=== PATIENT | female | born 1975 | race Two or more races ===

== ENCOUNTER 2023-01-17 11:38 | Emergency (ER) | payer OTHER ==
[~2023-01-17] VITALS: Ht 165.1 cm; Wt 61.2 kg
== END 2023-01-17 13:49 | disposition home or self-care (01) ==
LOC: ER 11:38
DX: S92.811A Other fracture of right foot, initial encounter for closed fracture (principal); X58.XXXA Exposure to other specified factors, initial encounter; Y93.89 Activity, other specified; Y92.89 Other specified places as the place of occurrence of the external cause; Y99.8 Other external cause status; Z91.040 Latex allergy status

== ENCOUNTER 2023-01-24 12:44 | Outpatient (CLI) | payer OTHER | END 2023-01-24 12:54 | disposition home or self-care (01) | LOC: RAD 12:44 | PROVIDERS: ATTEND Orthopaedic Surgery | DX: M79.671 Pain in right foot (principal) ==

== ENCOUNTER 2023-05-24 10:35 | Outpatient (CLI) | payer OTHER | END 2023-05-24 10:36 | disposition home or self-care (01) | LOC: NUCLEAR 10:35 | PROVIDERS: ATTEND Orthopaedic Surgery | DX: M81.0 Age-related osteoporosis without current pathological fracture (principal) ==

== ENCOUNTER 2023-05-29 08:25 | Outpatient (CLI) | payer OTHER | END 2023-05-29 08:56 | disposition home or self-care (01) | LOC: RAD 08:25 | PROVIDERS: ATTEND Orthopaedic Surgery | DX: M25.551 Pain in right hip (principal) ==

== ENCOUNTER 2024-06-02 12:23 | Outpatient (CLI) | payer OTHER ==
[2024-06-02] MEDS ORDERED: PROBIOTIC1 EAC2 PO (22:23)
[2024-06-02] MEDS ORDERED: PEPCID AC20 MG PO (22:23)
== END 2024-06-02 12:47 | disposition home or self-care (01) ==
LOC: MAMO-SONO 12:23
DX: N63.0 Unspecified lump in unspecified breast (principal); Z12.31 Encounter for screening mammogram for malignant neoplasm of breast; Z98.82 Breast implant status

== ENCOUNTER 2024-06-02 14:56 | Outpatient (CLI) | payer OTHER ==
[2024-06-02 16:25] LABS: HEMATOCRIT 42.6 % (36.0-45.00); HEMOGLOBIN 14.3 g/dL (12.0-15.00); MEAN CELL VOLUME 91.3 fL (80.00-100.00); MEAN CORPUSCULAR HEMOGLOBIN 30.7 pg (27.00-32.0); MEAN CORPUSCULAR HGB CONC 33.7 g/dl (32.0-36.0); PLATELET COUNT 251 K/uL (150-450); RED BLOOD COUNT 4.67 M/uL (4.00-6.00); RED CELL DISTRIBUTION WIDTH 13.1 % (11.5-14.5)
[2024-06-02 16:36] LABS: PH,URINE 5.5 (5.0-8.0); URINE APPEARANCE Clear; URINE BILIRRUBIN Negative (NEGATIVE); URINE BLOOD Negative; URINE COLOR Yellow; URINE GLUCOSE Negative (NEGATIVE); URINE KETONE 15 (NEGATIVE); URINE LEUKOCYTE Negative; URINE NITRATE Negative; URINE PROTEIN Trace (NEGATIVE)
[2024-06-02 16:40] LABS: URINE BACTERIA 1080.7 uL (0.0-1933); URINE EPITHELIAL CELLS 19.2 uL (0.0-38.8); URINE RBC 3.2 uL (0.0-20.8); URINE WBC 2.6 uL (0.0-23.2)
[2024-06-02 16:43] LABS: INR 1.01; PARTIAL THROMBOPLASTIN TIME 24.2 SECONDS (22.0-34.0)
[2024-06-02 17:13] LABS: ALBUMIN 4.3 gm/dL (3.4-5.0); BILIRUBIN TOTAL 0.65 mg/dL (0.3-1.2); CALCIUM 9.3 mg/dL (8.5-10.1); CREATININE SERUM 0.69 mg/dL (0.55-1.02); GFR 90.05; GLOBULINA 3.5 G/DL (2.4-3.5); POTASSIUM 4.07 mEq/L (3.5-5.1); TOTAL PROTEIN 7.8 gm/dL (6.4-8.2)
[2024-06-02 17:20] LABS: TSH 5.81 uIU/mL (0.358-3.74)
[2024-06-02] MEDS ORDERED: PROBIOTIC1 EAC2 PO (22:23)
[2024-06-02] MEDS ORDERED: PEPCID AC20 MG PO (22:23)
[2024-06-03 11:43] LABS: VITAMIN D3 25 HYDROXY 28.8 ng/ml (30-120)
[2024-06-04 10:05] LABS: FOLLICLE STIMULATING HORMONE 19.3 mIU/mL (.); hav igm Negative (Negative); hcv Non Reactive (Non Reactive); hep b c Negative (Negative); hep b s ag Negative (Negative)
== END 2024-06-02 15:09 | disposition home or self-care (01) ==
LOC: LAB 14:56
DX: N95.8 Other specified menopausal and perimenopausal disorders (principal); R10.2 Pelvic and perineal pain; R73.01 Impaired fasting glucose; E55.9 Vitamin D deficiency, unspecified; D51.8 Other vitamin B12 deficiency anemias; N95.1 Menopausal and female climacteric states; E03.8 Other specified hypothyroidism; E72.20 Disorder of urea cycle metabolism, unspecified; R94.5 Abnormal results of liver function studies

== ENCOUNTER 2024-06-02 18:26 | Emergency (ER) | payer OTHER ==
[~2024-06-02] VITALS: Ht 165.1 cm; Wt 65.3 kg
[2024-06-02 18:38] VITALS: BP 157/94; O2SAT 96
[2024-06-02] MEDS ORDERED: 0.9 % SODIUM CHLORIDE 1,000 ML IV ONE (20:30)
[2024-06-02 21:25] LABS: HEMATOCRIT 41.1 % (36.0-45.00); HEMOGLOBIN 13.9 g/dL (12.0-15.00); MEAN CELL VOLUME 90.8 fL (80.00-100.00); MEAN CORPUSCULAR HEMOGLOBIN 30.7 pg (27.00-32.0); MEAN CORPUSCULAR HGB CONC 33.8 g/dl (32.0-36.0); PLATELET COUNT 263 K/uL (150-450); RED BLOOD COUNT 4.53 M/uL (4.00-6.00); RED CELL DISTRIBUTION WIDTH 13.2 % (11.5-14.5)
[2024-06-02 21:54] LABS: INR 0.97; PARTIAL THROMBOPLASTIN TIME 28.9 SECONDS (22.0-34.0); PROTHROMBIN TIME 10.6 SECONDS (9.0-11.5)
[2024-06-02] MEDS ORDERED: PEPCID AC20 MG PO (22:23)
[2024-06-02] MEDS ORDERED: PROBIOTIC1 EAC2 PO (22:23)
== END 2024-06-02 22:27 | disposition home or self-care (01) ==
LOC: ER 18:28
PROVIDERS: General Practice
DX: R53.81 Other malaise (principal); D72.819 Decreased white blood cell count, unspecified; Z88.6 Allergy status to analgesic agent; Z91.040 Latex allergy status

== ENCOUNTER 2024-06-30 10:30 | Outpatient (CLI) | payer OTHER ==
[~2024-06-30 10:30] MED LIST: PEPCID AC20 MG PO; PROBIOTIC1 EAC2 PO
[2024-06-30 11:29] LABS: HEMATOCRIT 41.2 % (36.0-45.00); HEMOGLOBIN 13.8 g/dL (12.0-15.00); MEAN CELL VOLUME 91.5 fL (80.00-100.00); MEAN CORPUSCULAR HEMOGLOBIN 30.6 pg (27.00-32.0); MEAN CORPUSCULAR HGB CONC 33.4 g/dl (32.0-36.0); PLATELET COUNT 272 K/uL (150-450); RED CELL DISTRIBUTION WIDTH 13.4 % (11.5-14.5)
== END 2024-06-30 10:37 | disposition home or self-care (01) ==
LOC: LAB 10:30
PROVIDERS: ATTEND Internal Medicine
DX: J20.2 Acute bronchitis due to streptococcus (principal)

== ENCOUNTER 2024-06-30 10:58 | Outpatient (CLI) | payer OTHER | END 2024-06-30 11:01 | disposition home or self-care (01) | LOC: SONOGRAMA 10:58 | PROVIDERS: ATTEND Internal Medicine | DX: E03.2 Hypothyroidism due to medicaments and other exogenous substances (principal) ==

== ENCOUNTER 2024-08-25 08:24 | Outpatient (CLI) | payer OTHER ==
[2024-08-25 09:29] LABS: HEMATOCRIT 43.4 % (36.0-45.00); HEMOGLOBIN 13.9 g/dL (12.0-15.00); MEAN CELL VOLUME 92.5 fL (80.00-100.00); MEAN CORPUSCULAR HEMOGLOBIN 29.7 pg (27.00-32.0); MEAN CORPUSCULAR HGB CONC 32.1 g/dl (32.0-36.0); PLATELET COUNT 304 K/uL (150-450); RED BLOOD COUNT 4.69 M/uL (4.00-6.00); RED CELL DISTRIBUTION WIDTH 12.8 % (11.5-14.5)
[2024-08-25 10:34] LABS: ALBUMIN 4.2 gm/dL (3.4-5.0); BILIRUBIN TOTAL 0.51 mg/dL (0.3-1.2); CALCIUM 9.1 mg/dL (8.5-10.1); CHOL HDL RATIO 3.1 (0-5.0); CREATININE SERUM 0.81 mg/dL (0.55-1.02); GFR 74.84; GLOBULINA 3.4 G/DL (2.4-3.5); POTASSIUM 3.9 mEq/L (3.5-5.1); T4 FREE 0.93 NG/ML (0.76-1.46); TOTAL PROTEIN 7.6 gm/dL (6.4-8.2); TSH 3.15 uIU/mL (0.358-3.74)
[2024-08-27 05:06] LABS: ANTI THYROID PEROXIDASE < 9 IU/mL (0-34); ESTRADIOL SERUM 57.1 pg/mL (.)
== END 2024-08-25 08:30 | disposition home or self-care (01) ==
LOC: LAB 08:24
PROVIDERS: ATTEND Internal Medicine
DX: E03.8 Other specified hypothyroidism (principal); R94.5 Abnormal results of liver function studies; E78.00 Pure hypercholesterolemia, unspecified; N95.1 Menopausal and female climacteric states

== ENCOUNTER 2024-08-25 09:22 | Outpatient (CLI) | payer OTHER | END 2024-08-25 09:34 | disposition home or self-care (01) | LOC: RAD 09:22 | PROVIDERS: ATTEND Internal Medicine | DX: M36.3 Arthropathy in other blood disorders (principal) ==